=== PATIENT | male | born 1965 | race Caucasian/White ===

== ENCOUNTER 2023-05-19 20:30 | Observation (INO) | payer OTHER ==
[2023-05-19] MEDS ORDERED: SODIUM CHLORIDE 0.9% 1,000 ML IV STA (21:45)
--- NOTE | 2023-05-19 21:45 | ED ---
Abdominal Pain HPI - General Chief Complaint: Abdominal Pain Stated Complaint: Possible Hernia Time Seen by Provider: 05/19/23 21:14 Source: patient, RN notes reviewed, old records reviewed Mode of arrival: ambulatory Limitations: no limitations - History of Present Illness Initial Comments: This is a 58-year-old male to the ER today. Patient presents today for evaluation regards to severe abdominal pain and scrotal pain. Patient has no history of abdominal surgery any other significant medical history of surgery. Patient has had a history of epididymitis. Patient has significant swelling in his abdomen and groin. MD Complaint: abdominal pain, other (Groin pain) -: days(s) Location: suprapubic Radiation: suprapubic Migration to: suprapubic Severity: severe Severity scale (1-10): 10 Quality: stabbing, aching, fullness Consistency: constant Improves With: nothing Worsens With: nothing Associated Symptoms: denies other symptoms Treatments Prior to Arrival: other (0) - Related Data Previous Rx's Medication Instructions Recorded Acetaminophen Tab [Tylenol] 650 mg PO Q6H #30 tab 05/21/23 Docusate [Colace] 100 mg PO BID #20 capsule 05/21/23 Ibuprofen [Motrin] 600 mg PO Q6HR PRN #40 tab 05/21/23 oxyCODONE HCL [OxyIR] 5 mg PO Q6H PRN 3 Days #10 tab 05/21/23 Allergies Allergy/AdvReac Type Severity Reaction Status Date / Time No Known Allergies Allergy Verified 05/20/23 17:42 Review of Systems ROS Statement: Those systems with pertinent positive or pertinent negative responses have been documented in the HPI. ROS Other: All systems not noted in ROS Statement are negative. Past Medical History Past Medical History: No Reported History History of Any Multi-Drug Resistant Organisms: None Reported Past Surgical History: No Surgical Hx Reported Past Psychological History: No Psychological Hx Reported Smoking Status: Current every day smoker Past Alcohol Use History: Occasional Past Drug Use History: None Reported - Past Family History Mother Family Medical History: Hypertension Father Family Medical History: Hypertension General Exam Limitations: no limitations General appearance: alert, in no apparent distress Head exam: Present: atraumatic, normocephalic, normal inspection Eye exam: Present: normal appearance, PERRL, EOMI. Absent: scleral icterus, conjunctival injection, periorbital swelling ENT exam: Present: normal exam, mucous membranes moist Neck exam: Present: normal inspection. Absent: tenderness, meningismus, lymphadenopathy Respiratory exam: Present: normal lung sounds bilaterally. Absent: respiratory distress, wheezes, rales, rhonchi, stridor Cardiovascular Exam: Present: regular rate, normal rhythm, normal heart sounds. Absent: systolic murmur, diastolic murmur, rubs, gallop, clicks GI/Abdominal exam: Present: soft, normal bowel sounds. Absent: distended, tenderness, guarding, rebound, rigid exam: Present: testicular tenderness, scrotal swelling (Significant scrotal s welling to size of softball) Extremities exam: Present: normal inspection, full ROM, normal capillary refill. Absent: tenderness, pedal edema, joint swelling, calf tenderness Back exam: Present: normal inspection Neurological exam: Present: alert, oriented X3, CN II-XII intact Psychiatric exam: Present: normal affect, normal mood Skin exam: Present: warm, dry, intact, normal color. Absent: rash Course Vital Signs 05/19/23 05/19/23 05/19/23 20:40 22:20 22:55 Temperature 98.0 F 98.3 F 98.0 F Pulse Rate 62 73 72 Respiratory 18 18 16 Rate Blood Pressure 188/88 167/95 158/87 O2 Sat by Pulse 98 98 98 Oximetry 05/20/23 01:59 Temperature Pulse Rate 72 Respiratory 18 Rate Blood Pressure 143/94 O2 Sat by Pulse 96 Oximetry - Reevaluation(s) Reevaluation #1: 05/19/23 21:54 Medical records reviewed Reevaluation #2: 05/19/23 21:54 Patient's pain is improved Reevaluation #3: Patient has no change in symptoms here in the ER Reevaluation #4: 05/20/23 01:19 Was pt. sent in by a medical professional or institution (, PA, COREMAKING MACHINE OPERATOR, urgent care, hospital, or fpc...) When possible be specific @ -no Did you speak to anyone other than the patient for history (EMS, parent, family, police, friend...)? What history was obtained from this source @ -no Did you review nursing and triage notes (agree or disagree)? Why? @ -agree Are old charts reviewed (outside hosp., previous admission, EMS record, old EKG, old radiological studies, urgent care reports/EKG's, fpc records)? Report findings @ -yes Differential Diagnosis (chest pain, altered mental status, abdominal pain women, abdominal pain men, vaginal bleeding, weakness, fever, dyspnea, syncope, headache, dizziness, GI bleed, back pain, seizure, CVA, palpatations, mental health, musculoskeletal)? @ -prior EKG interpreted by me (3pts min.). @ -yes X-rays interpreted by me (1pt min.). @ -no CT interpreted by me (1pt min.). @ -yes U/S interpreted by me (1pt. min.). @ -no What testing was considered but not performed or refused? (CT, X-rays, U/S, labs)? Why? @ -none What meds were considered but not given or refused? Why? @ -none Did you discuss the management of the patient with other professionals (professionals i.e. , PA, COREMAKING MACHINE OPERATOR, lab, RT, psych nurse, social media manager, retail pharmacy technician, teacher, correctional probation officer, test case developer)? Give summary @ -no Was smoking cessation discussed for >3mins.? @ -no Was critical care preformed (if so, how long)? @ -no Were there social determinants of health that impacted care today? How? (Homelessness, low income, unemployed, alcoholism, drug addiction, transportation, low edu. Level, literacy, decrease access to med. care, nursing home, rehab)? @ -none Was there de-escalation of care discussed even if they declined (Discuss DNR or withdrawal of care, Hospice)? DNR status @ -no What co-morbidities impacted this encounter? (DM, HTN, Smoking, COPD, CAD, Cancer, CVA, ARF, Chemo, Hep., AIDS, mental health diagnosis, sleep apnea, morbid obesity)? @ -none Was patient admitted / discharged? Hospital course, mention meds given and route, prescriptions, significant lab abnormalities, going to OR and other pertinent info. @ - 58 male to the emergency department for evaluation presenting with abdominal mass significant right inguinal hernia not strangulated but severe. Patient will be admitted for surgical evaluation management Admitted Undiagnosed new problem with uncertain prognosis? @ -no Drug Therapy requiring intensive monitoring for toxicity (Heparin, Nitro, Insulin, Cardizem)? @ -no Were any procedures done? @ -no Diagnosis/symptom? @ -Strangulated inguinal hernia Acute, or Chronic, or Acute on Chronic? @ -Acute Uncomplicated (without systemic symptoms) or Complicated (systemic symptoms)? @ -Complicated Side effects of treatment? @ -no Exacerbation, Progression, or Severe Exacerbation? @ -exacerbation Poses a threat to life or bodily function? How? (Chest pain, [place], [place], pneumonia, PE, COPD, DKA, ARF, appy, cholecystitis, CVA, Diverticulitis, Homicidal, Suicidal, threat to staff... and all critical care pts) @ -yes Reevaluation #5: 05/19/23 21:54 Differential Abdominal Pain Men: Appendicitis, cholecystitis, diverticulosis, ischemic bowel, pancreatitis, hepatitis, UTI, gastroenteritis, AAA, incarcerated hernia, bowel obstruction, constipation, inflammatory bowel, hepatitis, peptic ulcer disease, splenic infarction, perforated viscus, testicular torsion, this is not meant to be an all-inclusive list Medical Decision Making - Medical Decision Making 58 male to the emergency department for evaluation presenting with abdominal mass significant right inguinal hernia not strangulated but severe. Patient will be admitted for surgical evaluation management - Lab Data Result diagrams: 05/19/23 21:54 05/19/23 21:54 Lab Results 05/19/23 05/19/23 05/19/23 Range/Units 21:54 21:54 21:54 WBC 10.7 H (3.8-10.6) k/uL RBC 5.23 (4.30-5.90) m/uL Hgb 16.0 (13.0-17.5) gm/dL Hct 48.2 (39.0-53.0) % MCV 92.2 (80.0-100.0) fL MCH 30.5 (25.0-35.0) pg MCHC 33.1 (31.0-37.0) g/dL RDW 12.8 (11.5-15.5) % Plt Count 216 (150-450) k/uL MPV 8.5 Neutrophils % 55 % Lymphocytes % 30 % Monocytes % 7 % Eosinophils % 4 % Basophils % 0 % Neutrophils # 5.9 (1.3-7.7) k/uL Lymphocytes # 3.3 (1.0-4.8) k/uL Monocytes # 0.8 (0-1.0) k/uL Eosinophils # 0.4 (0-0.7) k/uL Basophils # 0.0 (0-0.2) k/uL Sodium 134 L (137-145) mmol/L Potassium 4.6 (3.5-5.1) mmol/L Chloride 103 (98-107) mmol/L Carbon Dioxide 20 L (22-30) mmol/L Anion Gap 11 mmol/L BUN 16 (9-20) mg/dL Creatinine 0.89 (0.66-1.25) mg/dL Est GFR (CKD-EPI)AfAm >90 (>60 ml/min/1.73 sqM) Est GFR (CKD-EPI)NonAf >90 (>60 ml/min/1.73 sqM) Glucose 99 (74-99) mg/dL Calcium 9.4 (8.4-10.2) mg/dL Phosphorus 4.0 (2.5-4.5) mg/dL Magnesium 1.9 (1.6-2.3) mg/dL Total Bilirubin 0.7 (0.2-1.3) mg/dL AST 48 (17-59) U/L ALT 50 H (4-49) U/L Alkaline Phosphatase 61 (38-126) U/L Total Protein 7.7 (6.3-8.2) g/dL Albumin 4.7 (3.5-5.0) g/dL Amylase 53 (30-110) U/L Lipase 68 (23-300) U/L Urine Color Yellow Urine Appearance Clear (Clear) Urine pH 5.5 (5.0-8.0) Ur Specific [place] >1.030 (1.001-1.035) Urine Protein Trace (Negative) Urine Glucose (UA) Negative (Negative) Urine Ketones Trace (Negative) Urine Blood Negative (Negative) Urine Nitrite Negative (Negative) Urine Bilirubin Negative (Negative) Urine Urobilinogen <2.0 (<2.0) mg/dL Ur Leukocyte Esterase Negative (Negative) Urine RBC 0 (0-5) /hpf Urine WBC 0 (0-5) /hpf Urine Bacteria 0 (None) /hpf Urine Mucus 0 (None) /hpf - Radiology Data Radiology results: report reviewed (CT of the abdomen and pelvis does show right inguinal hernia containing colon), image reviewed Disposition Clinical Impression: Abdominal pain, Right inguinal hernia Disposition: ADMITTED IP TO THIS HOSP Condition: Good Is patient prescribed a controlled substance at d/c from ED?: No Time of Disposition: 01:40
[2023-05-19] MEDS ORDERED: MORPHINE SULFATE 4 MG/ML SYRINGE IVP STA (21:46)
[2023-05-19 22:35] LABS: ALT 50 U/L (4-49); AST 48 U/L (17-59); African American GFR (CKD) >90 (>60 ml/min/1.73 sqM); Alkaline Phosphatase 61 U/L (38-126); Amylase 53 U/L (30-110); Blood Urea Nitrogen 16 mg/dL (9-20); Calcium 9.4 mg/dL (8.4-10.2); Chloride 103 mmol/L (98-107); Glucose 99 mg/dL (74-99); Lipase 68 U/L (23-300); Magnesium 1.9 mg/dL (1.6-2.3); Non-African American GFR(CKD) >90 (>60 ml/min/1.73 sqM); Potassium 4.6 mmol/L (3.5-5.1); Sodium 134 mmol/L (137-145); Total Bilirubin 0.7 mg/dL (0.2-1.3); Total Protein 7.7 g/dL (6.3-8.2)
[2023-05-19 22:36] LABS: Albumin 4.7 g/dL (3.5-5.0); Anion Gap 11 mmol/L; Carbon Dioxide 20 mmol/L (22-30)
[2023-05-19] MEDS ORDERED: HYDROmorphone 1 MG/ML 1 ML SYRINGE IVP STA (22:45)
[2023-05-19 23:01] LABS: Appearance,Urine Clear (Clear); Color,Urine Yellow
[2023-05-19 23:02] LABS: Bilirubin,Urine Negative (Negative); Blood,Urine Negative (Negative); Glucose,Urine (UA) Negative (Negative); Ketones,Urine Trace (Negative); Leukocyte Esterase,Urine Negative (Negative); Nitrite,Urine Negative (Negative); PH, Urine 5.5 (5.0-8.0); Protein,Urine Trace (Negative); Specific Gravity,Urine >1.030 (1.001-1.035); Urobilinogen,Urine <2.0 mg/dL (<2.0)
[2023-05-19 23:07] LABS: Basophils % (A) 0 %; Eosinophils # (A) 0.4 k/uL (0-0.7); Eosinophils % (A) 4 %; HCT 48.2 % (39.0-53.0); Lymphocytes # (A) 3.3 k/uL (1.0-4.8); Lymphocytes % (A) 30 %; MCH 30.5 pg (25.0-35.0); MCHC 33.1 g/dL (31.0-37.0); MCV 92.2 fL (80.0-100.0); Mean Platelet Volume 8.5; Monocytes # (A) 0.8 k/uL (0-1.0); Monocytes % (A) 7 %; Neutrophils # (A) 5.9 k/uL (1.3-7.7); Neutrophils % (A) 55 %; Platelet Count 216 k/uL (150-450); RBC 5.23 m/uL (4.30-5.90); RDW 12.8 % (11.5-15.5); WBC 10.7 k/uL (3.8-10.6)
[2023-05-19 23:57] LABS: Bacteria,Urine 0 /hpf; Mucus,Urine 0 /hpf; RBC,Urine 0 /hpf (0-5); WBC,Urine 0 /hpf (0-5)
--- NOTE | 2023-05-20 00:37 | CT ---
EXAM: CT Abdomen and Pelvis With Intravenous Contrast CLINICAL HISTORY: ITS.REASON CT Reason: abdominal pain TECHNIQUE: Axial computed tomography images of the abdomen and pelvis with intravenous contrast. CTDI is 24 mGy and DLP is 1909.4 mGy-cm. This CT exam was performed using one or more of the following dose reduction techniques: automated exposure control, adjustment of the mA and/or kV according to patient size, and/or use of iterative reconstruction technique. COMPARISON: No relevant prior studies available. FINDINGS: ABDOMEN: Liver: Unremarkable. Gallbladder and bile ducts: Unremarkable. Pancreas: Unremarkable. Spleen: Unremarkable. Adrenals: Unremarkable. Kidneys and ureters: Unremarkable. No obstructing stones. No hydronephrosis. Stomach and bowel: Right inguinal hernia containing a knuckle of ascending colon. No evidence of strangulation. There may be a component of low-grade upstream partial obstruction. PELVIS: Appendix: No findings to suggest acute appendicitis. Bladder: Unremarkable. Reproductive: Large multilocular hydroceles. Prostatomegaly. ABDOMEN and PELVIS: Intraperitoneal space: Unremarkable. No free air. No significant fluid collection. Bones/joints: No acute fracture. Soft tissues: See above. Vasculature: Unremarkable. Lymph nodes: Unremarkable. IMPRESSION: 1. Right inguinal hernia containing a knuckle of ascending colon. No evidence of strangulation. There may be a component of low-grade upstream partial obstruction. 2. Large multilocular hydroceles.
[2023-05-20] MEDS ORDERED: MORPHINE SULFATE 4 MG/ML SYRINGE IV PRN (01:41)
[2023-05-20] MEDS ORDERED: NALOXONE 0.4 MG/ML 1 ML VIAL IV PRN ×2 (01:41→10:58)
--- NOTE | 2023-05-20 02:21 | US ---
EXAM: US Scrotum CLINICAL HISTORY: ITS.REASON US Reason: hernia,pain TECHNIQUE: Real-time ultrasound of the scrotum with color Doppler and image documentation. COMPARISON: No relevant prior studies available. FINDINGS: Right testicle: Right testicle measures 5.7 x 3.3 x 2.6 cm. No blood flow. No torsion. Left testicle: Left testicle measures 5.3 x 2.0 x 3.0 cm. Normal blood flow. No torsion. Epididymides: Epididymis is not visualized. Scrotum: Large bilateral multilocular hydroceles. IMPRESSION: 1. No torsion. 2. Large bilateral multilocular hydroceles.
[2023-05-20] MEDS: SODIUM CHLORIDE 0.9% 1,000 ML IV SCH ×3 (02:31→17:05)
[2023-05-20] MEDS ORDERED: BUPIVACAINE (PF) 0.25% 30 ML VIAL SQ ONE ×2 (09:07→10:47)
[2023-05-20] MEDS ORDERED: LACTATED RINGERS 1,000 ML IV ONE ×2 (09:19→10:58)
[2023-05-20] MEDS ORDERED: ONDANSETRON 4 MG/2 ML VIAL IVP ONE (09:20)
[2023-05-20] MEDS ORDERED: DEXAMETHASONE SOD PHOSPHATE 4 MG/ML 1 ML VIAL IVP ONE (09:21)
[2023-05-20] MEDS ORDERED: LIDOCAINE 2% INJ 20 MG/ML (2 ML VIAL) ONE (09:39)
[2023-05-20] MEDS ORDERED: HYDROmorphone (PF) 1 MG/ML ONE (09:39)
[2023-05-20] MEDS ORDERED: fentaNYL (PF) 50 MCG/ML 2 ML AMP ONE (09:39)
[2023-05-20] MEDS ORDERED: KETOROLAC 15 MG/ML 1 ML VIAL ONE (09:39)
[2023-05-20] MEDS ORDERED: LIDOCAINE 4% LTA KIT (4 ML) TOPICAL ONE (09:39)
[2023-05-20] MEDS ORDERED: MIDAZOLAM 2 MG/2 ML VIAL ONE (09:39)
[2023-05-20] MEDS ORDERED: SUCCINYLCHOLINE CHLORIDE 200 MG/10 ML VIAL IV ONE (09:39)
[2023-05-20] MEDS ORDERED: SODIUM CHLORIDE 0.9% 100 ML BAG ONE (09:39)
[2023-05-20] MEDS ORDERED: PROPOFOL 10 MG/ML 20 ML VIAL IV ONE (09:39)
[2023-05-20] MEDS ORDERED: ceFAZolin 1,000 MG VIAL ONE (09:39)
[2023-05-20] MEDS ORDERED: SODIUM CHLORIDE 0.9% 50 ML with ceFAZolin 2,000 MG IV ONE ×2 (09:43)
[2023-05-20] MEDS ORDERED: HYDROmorphone 0.5 MG/0.5 ML SYRINGE IVP PRN (10:58)
[2023-05-20] MEDS ORDERED: ONDANSETRON 4 MG/2 ML VIAL IVP PRN (10:58)
[2023-05-20] MEDS ORDERED: HYDROmorphone 1 MG/ML 1 ML SYRINGE IVP PRN (10:58)
--- NOTE | 2023-05-20 10:58 | P.OP ---
Date of Procedure: 05/20/23 Preoperative Diagnosis: Incarcerated right inguinal hernia Bilateral hydrocele Postoperative Diagnosis: Incarcerated right inguinal hernia Bilateral hydrocele Procedure(s) Performed: Open repair of incarcerated right inguinal hernia Excision of right hydrocele Aspiration of left hydrocele Anesthesia: ARTHUR Surgeon: Yoshi Li Estimated Blood Loss (ml): 10 Pathology: other (Incarcerated omentum, hernia sac) Condition: stable Disposition: PACU Description of Procedure: Patient's placed on the operative table in the supine position. He received general endotracheal tube anesthesia. His abdomen and groins were prepped and draped in sterile fashion. Patient had an incarcerated right inguinal hernia. The skin was incised in the groin in the standard fashion. Using left cautery the subcutaneous tissues were divided. The hernia sac and fascia and exposed. A landon in the fascia and made with a 15 blade. And then using [employer] months scissors the fascia was opened. The fascia was dissected free and then he Returns placed a wound. The hernia sac and testicle and brought up into the wound. Patient a very large hydrocele associated with the hernia. The hydrocele was opened and drained. The hernia sac was then dissected free from the cord structures. Hernia sac was then opened and incarcerated omentum was excised by ligating between a Anahi clamp and dividing it and then ligating it with 0 silk tie. The hernia sac then underwent a high ligation using 0 Vicryl tie. Specimen sent to pathology. Using a large Prolene hernial mesh plug the hernia was repaired. The inferior leaf was expanded and the prepared space. The superior leaf was attached to the pubic tubercle using 2-0 Prolene suture. Vicryl was then used to close the fascia external oblique. The testicle was placed back into the scrotum. A FRANCESCA drain is placed and alongside the testicle brought through separate stab incision. Edouard's fascia closed with 2-0 Vicryl suture. Skin was closed clemencia. The patient had a large left hydrocele. This was aspirated using a 60 mL syr cammie and 18-gauge needle. A prostate 150 mL of fluid was aspirated from the hydrocele. Patient tolerated procedure well and was sent to recovery room in stable condition.
--- NOTE | 2023-05-20 11:37 | P.GSHP ---
History of Present Illness H&P Date: 05/20/23 Chief Complaint: Incarcerated right inguinal hernia This a 58-year-old male with chronic history of inguinal hernia. Patient's had significant scrotal swelling for several years. Patient seen in the emergency room. Patient has large bilateral hydroceles as well as an incarcerated right inguinal hernia. Past Medical History Past Medical History: No Reported History History of Any Multi-Drug Resistant Organisms: None Reported Past Surgical History: No Surgical Hx Reported Past Psychological History: No Psychological Hx Reported Smoking Status: Current every day smoker Past Alcohol Use History: Occasional Additional Past Alcohol Use History / Comment(s): smokes half a pack of cigarettes per day since age 20 Past Drug Use History: None Reported - Past Family History Mother Family Medical History: Hypertension Father Family Medical History: Hypertension Medications and Allergies Allergies Allergy/AdvReac Type Severity Reaction Status Date / Time No Known Allergies Allergy Verified 05/19/23 21:52 Surgical - Exam Vital Signs Temp Pulse Resp BP Pulse Ox 98.0 F 62 18 188/88 98 05/19/23 20:40 05/19/23 20:40 05/19/23 20:40 05/19/23 20:40 05/19/23 20:40 - General well developed, well nourished, no distress - Eyes PERRL - ENT normal pinna - Neck no masses - Respiratory normal expansion - Cardiovascular Rhythm: regular - Abdomen Abdomen: soft, non tender Hernia: inguinal (Large incarcerated right we'll hernia. There is large bilateral hydroceles) Results - Labs 05/19/23 21:54 05/19/23 21:54 Abnormal Lab Results - Last 24 Hours (Table) 05/19/23 05/19/23 Range/Units 21:54 21:54 WBC 10.7 H (3.8-10.6) k/uL Sodium 134 L (137-145) mmol/L Carbon Dioxide 20 L (22-30) mmol/L ALT 50 H (4-49) U/L Diabetes panel 05/19/23 Range/Units 21:54 Sodium 134 L (137-145) mmol/L Potassium 4.6 (3.5-5.1) mmol/L Chloride 103 (98-107) mmol/L Carbon Dioxide 20 L (22-30) mmol/L BUN 16 (9-20) mg/dL Creatinine 0.89 (0.66-1.25) mg/dL Glucose 99 (74-99) mg/dL Calcium 9.4 (8.4-10.2) mg/dL AST 48 (17-59) U/L ALT 50 H (4-49) U/L Alkaline Phosphatase 61 (38-126) U/L Total Protein 7.7 (6.3-8.2) g/dL Albumin 4.7 (3.5-5.0) g/dL Calcium panel 05/19/23 Range/Units 21:54 Calcium 9.4 (8.4-10.2) mg/dL Phosphorus 4.0 (2.5-4.5) mg/dL Albumin 4.7 (3.5-5.0) g/dL Pituitary panel 05/19/23 Range/Units 21:54 Sodium 134 L (137-145) mmol/L Potassium 4.6 (3.5-5.1) mmol/L Chloride 103 (98-107) mmol/L Carbon Dioxide 20 L (22-30) mmol/L BUN 16 (9-20) mg/dL Creatinine 0.89 (0.66-1.25) mg/dL Glucose 99 (74-99) mg/dL Calcium 9.4 (8.4-10.2) mg/dL Adrenal panel 05/19/23 Range/Units 21:54 Sodium 134 L (137-145) mmol/L Potassium 4.6 (3.5-5.1) mmol/L Chloride 103 (98-107) mmol/L Carbon Dioxide 20 L (22-30) mmol/L BUN 16 (9-20) mg/dL Creatinine 0.89 (0.66-1.25) mg/dL Glucose 99 (74-99) mg/dL Calcium 9.4 (8.4-10.2) mg/dL Total Bilirubin 0.7 (0.2-1.3) mg/dL AST 48 (17-59) U/L ALT 50 H (4-49) U/L Alkaline Phosphatase 61 (38-126) U/L Total Protein 7.7 (6.3-8.2) g/dL Albumin 4.7 (3.5-5.0) g/dL Assessment and Plan Assessment: Incarcerated right we'll hernia. Patient undergo open repair.
[2023-05-20] MEDS: KETOROLAC 15 MG/ML 1 ML VIAL IVP SCH ×3 (13:33→23:19)
[2023-05-21] MEDS: SODIUM CHLORIDE 0.9% 1,000 ML IV SCH (00:21)
[2023-05-21] MEDS: KETOROLAC 15 MG/ML 1 ML VIAL IVP SCH (05:55)
[2023-05-21 08:13] VITALS: BP 151/80; PULSE 61; RESP 18; TEMP 97.8
[2023-05-21] MEDS ORDERED: ENOXAPARIN 40 MG/0.4 ML SYRINGE SQ SCH (09:00)
--- NOTE | 2023-05-21 10:57 | P.DS ---
Providers Date of admission: 05/20/23 01:42 Expected date of discharge: 05/21/23 Attending physician: Yoshi Li Consults: 05/20/23 10:58 Consult Physician Routine Consulting Provider: Bienvenido Worthington Consult Reason/Comments: Medical management Do you want consulting provider notified?: Yes Primary care physician: Stated None Hospital Course: This a 58-year-old male who underwent open repair of a large incarcerated right inguinal hernia and repair of hydrocele. Patient did well postoperative. Please hospital chart for details. Procedures: Open repair right Inguinal hernia Patient Condition at Discharge: Good Plan - Discharge Summary Discharge Rx Participant: No New Discharge Prescriptions: New Docusate [Colace] 100 mg PO BID #20 capsule Ibuprofen [Motrin] 600 mg PO Q6HR PRN #40 tab PRN Reason: Pain oxyCODONE HCL [OxyIR] 5 mg PO Q6H PRN 3 Days #10 tab PRN Reason: Pain Acetaminophen Tab [Tylenol] 650 mg PO Q6H #30 tab Discharge Medication List Acetaminophen Tab [Tylenol] 650 mg PO Q6H #30 tab 05/21/23 [Rx] Docusate [Colace] 100 mg PO BID #20 capsule 05/21/23 [Rx] Ibuprofen [Motrin] 600 mg PO Q6HR PRN #40 tab 05/21/23 [Rx] oxyCODONE HCL [OxyIR] 5 mg PO Q6H PRN 3 Days #10 tab 05/21/23 [Rx] Follow up Appointment(s)/Referral(s): None,Stated [Primary Care Provider] - 1-2 days Yoshi Li MD [STAFF PHYSICIAN] - 1 Week Discharge Disposition: HOME SELF-CARE
--- NOTE | 2023-05-21 11:31 | P.CONS ---
History of Present Illness - Reason for Consult Hyponatremia - History of Present Illness Pleasant 58-year-old male with inguinal hernia came in for repair of 4 right inguinal hernia. Patient successfully underwent surgery patient is bit hyponatremic secondary to mild hyperkalemia received IV fluids overnight patient does smoke half a pack of cigarettes per day. Beyond that patient pain is very fairly well controlled patient to doesn't have any other complaints. REVIEW OF SYSTEMS: CONSTITUTIONAL: No fever, no malaise, no fatigue. HEENT: No recent visual problems or hearing problems. Denied any sore throat. CARDIOVASCULAR: No chest pain, orthopnea, PND, no palpitations, no syncope. PULMONARY: No shortness of breath, no cough, no hemoptysis. GASTROINTESTINAL: No diarrhea, no nausea, no vomiting, no abdominal pain. NEUROLOGICAL: No headaches, no weakness, no numbness. HEMATOLOGICAL: Denies any bleeding or petechiae. GENITOURINARY: Denies any burning micturition, frequency, or urgency. MUSCULOSKELETAL/RHEUMATOLOGICAL: Denies any joint pain, swelling, or any muscle pain. ENDOCRINE: Denies any polyuria or polydipsia. The rest of the 14-point review of systems is negative. PHYSICAL EXAMINATION: GENERAL: The patient is alert and oriented x3, not in any acute distress. Well developed, well nourished. HEENT: Pupils are round and equally reacting to light. EOMI. No scleral icterus. No conjunctival pallor. Normocephalic, atraumatic. No pharyngeal erythema. No thyromegaly. CARDIOVASCULAR: S1 and S2 present. No murmurs, rubs, or gallops. PULMONARY: Chest is clear to auscultation, no wheezing or crackles. ABDOMEN: Soft, nontender, nondistended, normoactive bowel sounds. No palpable organomegaly. Right inguinal area postsurgically packed MUSCULOSKELETAL: No joint swelling or deformity. EXTREMITIES: No cyanosis, clubbing, or pedal edema. NEUROLOGICAL: Gross neurological examination did not reveal any focal deficits. SKIN: No rashes. Assessment and plan - mild hyponatremia secondary to hyponatremia improved with IV fluids -Repair of incarcerated right inguinal hernia pain management as prior per primary service -Nicotine cessation counseling was provided Is medically stable to be discharged Past Medical History Past Medical History: No Reported History History of Any Multi-Drug Resistant Organisms: None Reported Past Surgical History: No Surgical Hx Reported Past Psychological History: No Psychological Hx Reported Smoking Status: Current every day smoker Past Alcohol Use History: Occasional Additional Past Alcohol Use History / Comment(s): smokes half a pack of cigarettes per day since age 20 Past Drug Use History: None Reported - Past Family History Mother Family Medical History: Hypertension Father Family Medical History: Hypertension Medications and Allergies Home Medications Medication Instructions Recorded Confirmed Type Acetaminophen Tab [Tylenol] 650 mg PO Q6H #30 tab 05/21/23 Rx Docusate [Colace] 100 mg PO BID #20 capsule 05/21/23 Rx Ibuprofen [Motrin] 600 mg PO Q6HR PRN #40 tab 05/21/23 Rx oxyCODONE HCL [OxyIR] 5 mg PO Q6H PRN 3 Days #10 tab 05/21/23 Rx Allergies Allergy/AdvReac Type Severity Reaction Status Date / Time No Known Allergies Allergy Verified 05/20/23 17:42 Physical Exam Vitals: Vital Signs Temp Pulse Resp BP Pulse Ox 05/21/23 07:00 97.8 F 61 18 151/80 98 05/21/23 00:45 98.2 F 59 L 14 121/71 99 05/20/23 19:50 98.3 F 60 12 130/68 96 05/20/23 15:19 66 18 130/72 96 05/20/23 14:05 71 18 129/79 95 05/20/23 13:05 69 18 158/86 96 05/20/23 12:35 57 L 18 150/92 94 L 05/20/23 12:05 97.8 F 67 18 167/81 96 05/20/23 11:42 69 16 141/75 97 Intake and Output 05/20/23 05/21/23 05/21/23 22:59 06:59 14:59 Output Total 80 30 Balance -80 -30 Output: Drainage 80 30 Right Groin 80 30 Other: # Voids 1 2 Results CBC & Chem 7: 05/19/23 21:54 05/19/23 21:54
== END 2023-05-21 11:25 | disposition home or self-care (01) ==
LOC: EC 20:30 → 6NMEDSUR 05-20 01:42
PROVIDERS: ADMIT Surgery; ATTEND Surgery
DX: K40.30 Unilateral inguinal hernia, with obstruction, without gangrene, not specified as recurrent (principal); N43.3 Hydrocele, unspecified; F17.210 Nicotine dependence, cigarettes, uncomplicated; E87.1 Hypo-osmolality and hyponatremia; E87.5 Hyperkalemia; Z71.6 Tobacco abuse counseling; Z79.899 Other long term (current) drug therapy; Z82.49 Family history of ischemic heart disease and other diseases of the circulatory system
CPT/HCPCS: 96361; 96374; 96375; 99285; 36415; 88305; 80053; 82150; 83690; 83735; 84100; 85025; 81003; 88302; 93975; 76870; 74177; 49507; G0378 ×2; C1781; J2250; J0330; J2270; J1100; J2405; J0690; J3010; J1170 ×2; J1885 ×2; J2704; Q9967; J2001; J0665